=== PATIENT | female | born 1950 | race Caucasian/White ===

== ENCOUNTER 2024-04-20 15:00 | Inpatient (IN) | payer OTHER ==
[~2024-04-20] VITALS: Ht 170.2 cm; Wt 63.3 kg
[~2024-04-20 15:00] MED LIST: ASPI81CH43; ATOR-507; LISI10TA34; METO200T6
--- NOTE | 2024-04-20 15:09 | ECG ---
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
--- NOTE | 2024-04-20 15:15 | ED.PDOC ---
HPI Comments 74-year-old female with a history of hypertension brought in by EMS from home complaining of shortness of breath, generalized weakness and chest pain. Patient reports cough, congestion and shortness a breath for the past week, then noticed chest pain today. Pain is retrosternal radiating to the left side, sharp, worse with inspiration and cough. She denies any fever, nausea, vomiting, diaphoresis or edema. Chief Complaint: Chest Pain Time Seen by MD: 15:14 Primary Care Provider: DR VÁZQUEZ @ [facility] Reviewed Notes: Medications, Allergies Allergies: Coded Allergies: Penicillins (Verified Allergy, Unknown, 04/20/24) Home Meds Reported Medications Lisinopril (Lisinopril) 10 Mg Tab 07/16/11 Metoprolol Succinate (Toprol Xl) 200 Mg Tab 07/16/11 Aspirin (Asa) 81 Mg Ch 07/16/11 Atorvastatin Calcium (Lipitor) 40 Mg Tab 07/16/11 Information Source: Patient, Emergency Med Personnel Mode of Arrival: EMS Severity: Moderate Timing: Days Duration: Since onset Past Medical History PAST MEDICAL HISTORY: Gallstones, HTN, Kidney Stones Past Medical History (Other): Lung cancer in remission, COPD, chronic respiratory failure Surgical History: , Hysterectomy Family History Family History: No family hx of Cancer Social History Smoker: Quit Less Than 1 Year, Cigarettes Alcohol: Denies ETOH Use Drugs: Denies Drug Use Lives In: Home Constitutional: denies: chills, diaphoresis, fatigue, fever, malaise, sweats, weakness, others EENTM: reports: nose congestion; denies: blurred vision, double vision, ear bleeding, ear discharge, ear drainage, ear pain, ear ringing, eye pain, eye redness, hearing loss, mouth pain, mouth swelling, nasal discharge, nose bleeding, nose pain, photophobia, tearing, throat pain, throat swelling, voice changes, others Respiratory: reports: cough; denies: hemoptysis, orthopnea, SOB at rest, shortness of breath, SOB with excertion, stridor, wheezing, others Cardiovascular: reports: chest pain; denies: dizzy spells, diaphoresis, Dyspnea on exertion, edema, irregular heart beat, left arm pain, lightheadedness, palpitations, PND, syncope, others Gastrointestinal: denies: abdomen distended, abdominal pain, blood streaked bowels, constipated, diarrhea, dysphagia, difficulty swallowing, hematemesis, melena, nausea, poor appetite, poor fluid intake, rectal bleeding, rectal pain, vomiting, others Genitourinary: denies: abnormal vagina bleeding, burning, dyspareunia, dysuria, flank pain, frequency, hematuria, incontinence, pain, , vagina discharge, urgency, others Neurological: denies: dizziness, fainting, headache, left sided numbness, left sided weakness, numbness, paresthesia, pre-existing deficit, right sided numbness, right sided weakness, seizure, speech problems, tingling, tremors, weakness, others Musculoskeletal: denies: back pain, gout, joint pain, joint swelling, muscle pain, muscle stiffness, neck pain, others Integumetry: denies: bruises, change in color, change in hair/nails, dryness, laceration, lesions, lumps, rash, wounds, others Allergic/Immunocompromised: denies: Difficulty Healing, Frequent Infections, Hives, Itching, others Hematologic/Lymphatic: denies: anemia, blood clots, easy bleeding, easy bruising, swollen glands, others Endocrine: denies: excessive hunger, excessive sweating, excessive thirst, excessive urination, flushing, intolerance to cold, intolerance to heat, unexplained weight gain, unexplained weight loss, others Psychiatric: denies: anxiety, bipolar disorder, depression, hopeless, panic disorder, schizophrenia, sleepless, suicidal, others All Other Systems: Reviewed and Negative Physical Exam General Appearance: Mild Distress HEENT: Other (Unremarkable) Neck: Full Range of Motion, Normal Inspection Respiratory: Crackles, Decreased Breath Sounds, No Accessory Muscle Use, Respiratory Distress (Mild), Other (Tachypneic) Cardiovascular: No Edema, No JVD, Regular Rate/Rhythm Breast Exam: Deferred Gastrointestinal: Non Tender, Soft Genitalia: Deferred Pelvic: Deferred Rectal: Deferred Extremities: Normal inspection, Normal range of motion, Non-tender, No pedal edema Neurologic: Alert (Oriented x4), Normal Affect, Normal Mood, Other (Moves all extremities. No gross focal deficit.) Cerebellar Function: NOT DONE Reflexes: NOT DONE Skin: Dry, Normal Color, Warm Lymphatic: NOT DONE EKG EKG : Comments Sinus rhythm, rate 94, normal intervals, normal axis, normal QRS, upsloping ST elevation in inferior leads, nonspecific T changes. Was a procedure done? Was a procedure done?: No CP Differential Dx Differential Diagnosis: Angina, Electrolyte Disorder, Heart Failure, [place], Pulmonary Embolus, Renal Failure Differential Diagnosis: CHF Differential Diagnosis: Chest Wall Pain, Esophageal reflux/spasm, Gastritis, Pericarditis, Pneumonia, Pneumothorax X-Ray, Labs, Meds, VS Vital Signs Date Time Temp Pulse Resp B/P (MAP) Pulse Ox O2 Delivery O2 Flow Rate FiO2 04/20/24 19:30 97.9 71 18 112/77 (89) 93 97.9 04/20/24 18:51 97.9 111 16 137/88 (104) 94 97.9 04/20/24 17:46 20 95 Room Air* 0 21 04/20/24 16:03 94 04/20/24 15:03 89 04/20/24 15:00 98.9 88 20 136/77 (96) 95 Lab Test 04/20/24 21:06 04/20/24 18:24 04/20/24 16:30 04/20/24 15:09 Range/Units Influenza Type A Antigen Negative Negative Influenza Type B Antigen Negative Negative SARS-CoV-2 Antigen (Rapid) Negative NEGATIVE Troponin I High Sensitivity 5 4 5 </=34 ng/L Thyroid Stimulating Hormone (TSH) 1.85 0.55-4.78 uIU/mL Lactic Acid Level 1.5 0.4-2.0 mmol/L White Blood Count 19.6 H 4.4-10.8 10^3/uL Red Blood Count 4.45 4.0-5.20 10^6/uL Hemoglobin 12.1 L 12.2-16.2 g/dL Hematocrit 38.1 36.0-46.0 % Mean Corpuscular Volume 85.5 80.0-100.0 fL Mean Corpuscular Hemoglobin 27.3 L 28.0-32.0 pg Mean Corpuscular Hemoglobin Concent 31.9 L 32.0-36.0 g/dL Red Cell Distribution Width 15.8 H 11.8-14.3 % Platelet Count 479 H 140-450 10^3/uL Mean Platelet Volume 7.2 6.9-10.8 fL Neutrophils (%) (Auto) 92.3 H 37.0-80.0 % Lymphocytes (%) (Auto) 3.7 L 10.0-50.0 % Monocytes (%) (Auto) 3.1 0.0-12.0 % Eosinophils (%) (Auto) 0.1 0.0-7.0 % Basophils (%) (Auto) 0.8 0.0-2.0 % Neutrophils # (Auto) 18.1 H 1.6-8.6 10 ^3/uL Lymphocytes # (Auto) 0.7 0.4-5.4 10 ^3/uL Monocytes # (Auto) 0.6 0-1.3 10 ^3/uL Eosinophils # (Auto) 0 0-0.8 10 ^3/uL Basophils # (Auto) 0.2 0-0.2 10 ^3/uL Nucleated Red Blood Cells 0.1 % Sodium Level 135 L 136-145 mmol/L Potassium Level 5.5 H 3.5-5.1 mmol/L Chloride Level 99 98-107 mmol/L Carbon Dioxide Level 28 20-31 mmol/L Anion Gap 8 5-15 Blood Urea Nitrogen 18 9-23 mg/dL Creatinine 1.03 H 0.550-1.02 mg/dL Glomerular Filtration Rate Calc 57 >90 mL/min BUN/Creatinine Ratio 17.5 10.0-20.0 Serum Glucose 113 H 74-106 mg/dL Calcium Level 9.8 8.7-10.4 mg/dL Magnesium Level 1.9 1.6-2.6 mg/dL Iron Level 23 L 50-170 ug/dL Total Iron Binding Capacity 229 L 250-425 ug/dL Percent Iron Saturation 10.0 L 15-50 % Total Bilirubin 0.7 0.2-1.0 mg/dL Aspartate Amino Transferase (AST) 28 13-40 U/L Alanine Aminotransferase (ALT) 27 7-40 U/L Alkaline Phosphatase 78 46-116 U/L B-Type Natriuretic Peptide 58.93 0-100 pg/mL Total Protein 6.1 5.7-8.2 g/dL Albumin 3.6 3.2-4.8 g/dL Vitamin B12 Level Pending Folic Acid Pending Current Medications Medications (Trade) Dose Ordered Sig/Reggie Route Start Time Stop Time Status Last Admin Zirconium Oxide (Lokelma) 10 gm ONCE ONCE PO 04/20/24 17:00 04/20/24 17:10 DC 04/20/24 20:13 Albuterol (Ventolin Medneb) 5 mg ONCE ONCE NEB 04/20/24 17:00 04/20/24 17:10 DC 04/20/24 17:43 Sodium Bicarbonate 50 ml ONCE ONCE IV 04/20/24 17:00 04/20/24 17:10 DC 04/20/24 20:19 Sodium Chloride 500 ml @ 500 mls/hr Q1H ONCE IV 04/20/24 17:00 04/20/24 17:59 DC 04/20/24 20:12 Methylprednisolone Sodium Succinate (Solu Medrol) 125 mg ONCE ONCE IV 04/20/24 19:00 04/20/24 19:01 DC 04/20/24 20:15 PROCEDURE(s): CXRP - CHEST PORTABLE REASON: CP ORDER NUMBER(s): [id number], ACCESSION NUMBER(s): [id number] CHEST RADIOGRAPH Indication: CP Technique: Single frontal view of the chest was obtained Comparison: None FINDINGS: Lines and Tubes: None Lungs/pleura: There is yonfs-kc-oqjejzrq size left pleural effusion with likely atelectasis in the left lower lobe. The right lung and pleural space are clear. Cardiomediastinal contours: Unremarkable Pulmonary vasculature: Within normal limits. Bones: No acute osseous abnormality. IMPRESSION: 1. Jastr-mt-fqiylprn size left pleural effusion with likely atelectasis in the left lower lobe. HS:Y ATED BY: HITESH SOTO MD X-Ray, Labs, Meds, VS Comment 74-year-old female with a history of hypertension, COPD and chronic respiratory failure complaining of shortness a breath, generalized weakness and chest pain Vitals unremarkable Exam remarkable for diminished breath sounds and rales at both bases, mild respiratory distress Rhythm strip independently interpreted by me: Sinus rhythm, rate 94, no ectopy. Chest x-ray IMPRESSION: 1. Uvkth-kx-czqxoorx size left pleural effusion with likely atelectasis in the left lower lobe. 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 He did not feel the current EKG and symptoms represented a STEMI and recommended medical management. Patient treated with the following in the ED: 500 cc 0.9 normal saline IV bolus, Levaquin 750 mg IV, regular insulin 10 units IV, D50 50 mL IV, sodium bicarb 50 mEq IV, albuterol 5 mg nebulized, calcium gluconate 1 g IV, Lokelma 10 mg p.o., Solu-Medrol 125 mg IV On re-evaluation, patient is resting comfortably with stable vitals. Oxygen saturation is normal on 2 L nasal cannula. Case discussed with Andres COLE RP. Agreed patient is not currently stable for transfer. We are authorized to admit the patient here. Authorization [id number] Time of 1ST Reevaluation: 15:40 Reevaluation 1ST: Improved Patient Education/Counseling: Diagnosis, Treatment, Prognosis Family Education/Counseling: Diagnosis, Treatment, Need For Follow Up Departure 1 Departure Time of Disposition: 17:12 Impression: Primary Impression: Recurrent left pleural effusion Additional Impressions: Hyperkalemia Hyponatremia Ysivi-wk-fzdzxbi respiratory failure Qualified Codes: J96.20 - Acute and chronic respiratory failure, unspecified whether with hypoxia or hypercapnia COPD exacerbation Disposition: ADMITTED INPATIENT Admit to: Tele Condition: Guarded Critical Care Note Critical Care Time?: Yes (45 min-critical care time only) Critical care comment: Critical care time including multiple bedside re-evaluations, review of lab and imaging studies, and discussion of the case with the accepting provider. Patient is high risk for respiratory and/or hemodynamic decompensation. Stability Stability form required: No Heart Score Heart Score: Heart Score Response (Comments) Value History Slightly Suspicious 0 EKG Repolarization Disturb 1 Age >65 2 Risk Factors 1 or 2 risk factors 1 Troponin Normal limit 0 Total 4 I personally scribed for JADIEL ISAACS MD ([email or web address]) on 04/20/24 at 15:15. Electronically submitted by Marvin Zuluaga [email or web address]). JADIEL ISAACS MD Apr 20, 2024 15:15
[2024-04-20 15:29] LABS: Eosinophils # (auto) 0 10 ^3/uL (0-0.8); Hemoglobin 12.1 g/dL (12.2-16.2); Lymphocytes # (auto) 0.7 10 ^3/uL (0.4-5.4); Red Blood Cells 4.45 10^6/uL (4.0-5.20)
[2024-04-20 15:30] LABS: Basophils # (auto) 0.2 10 ^3/uL (0-0.2); Basophils % (auto) 0.8 % (0.0-2.0); Eosinophils % (auto) 0.1 % (0.0-7.0); Hematocrit 38.1 % (36.0-46.0); Lymphocytes % (auto) 3.7 % (10.0-50.0); Mean Corpuscular Hemoglobin 27.3 pg (28.0-32.0); Mean Corpuscular Hgb Conc. 31.9 g/dL (32.0-36.0); Mean Corpuscular Volume 85.5 fL (80.0-100.0); Monocytes # (auto) 0.6 10 ^3/uL (0-1.3); Monocytes % (auto) 3.1 % (0.0-12.0); Neutrophils # (auto) 18.1 10 ^3/uL (1.6-8.6); Neutrophils % (auto) 92.3 % (37.0-80.0); Nucleated Red Blood Cells % 0.1 %; Platelet Count (auto) 479 10^3/uL (140-450); Red Cell Distribution Width 15.8 % (11.8-14.3); White Blood Cell 19.6 10^3/uL (4.4-10.8)
[2024-04-20 15:44] LABS: Alanine Aminotransferase 27 U/L (7-40); Albumin 3.6 g/dL (3.2-4.8); Alkaline Phosphatase 78 U/L (46-116); Anion Gap 8 (5-15); Aspartate Aminotransferase 28 U/L (13-40); BUN/Creatinine Ratio 17.5 (10.0-20.0); Blood Urea Nitrogen 18 mg/dL (9-23); Calcium 9.8 mg/dL (8.7-10.4); Carbon Dioxide 28 mmol/L (20-31); Chloride 99 mmol/L (98-107); Magnesium 1.9 mg/dL (1.6-2.6)
[2024-04-20 15:45] LABS: Bilirubin, Total 0.7 mg/dL (0.2-1.0); Total Protein 6.1 g/dL (5.7-8.2)
[2024-04-20 15:48] LABS: Glucose 113 mg/dL (74-106); Potassium 5.5 mmol/L (3.5-5.1); Sodium 135 mmol/L (136-145)
--- NOTE | 2024-04-20 15:58 | DVH ---
CHEST RADIOGRAPH Indication: CP Technique: Single frontal view of the chest was obtained Comparison: None FINDINGS: Lines and Tubes: None Lungs/pleura: There is godcd-bz-skixtgzb size left pleural effusion with likely atelectasis in the le ft lower lobe. The right lung and pleural space are clear. Cardiomediastinal contours: Unremarkable Pulmonary vasculature: Within normal limits. Bones: No acute osseous abnormality. IMPRESSION: 1. Qrsqv-ta-zccaqxwh size left pleural effusion with likely atelectasis in the left lower lobe. HS:Y
--- NOTE | 2024-04-20 16:07 | ECG ---
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
[2024-04-20] MEDS: InsuLIN REG 1unit/0.01ml Soln (100units/ml) IV ONE (17:00)
[2024-04-20] MEDS: DEXTROSE (50%) 50ML SYRG IV ONE (17:00)
[2024-04-20] MEDS: CALCIUM GLUC 1,000mg/50ml-NS 50 ML IV ONE (17:00)
[2024-04-20] MEDS: ALBUTEROL SULF 2.5 MG/0.5ML(0.5%) NEB SOLN NEB ONE (17:43)
[2024-04-20 20:05] VITALS: PULSE 71; RESP 18; O2SAT 94
[2024-04-20] MEDS: SODIUM CHLORIDE 0.9% 500 ML IV ONE (20:12)
[2024-04-20] MEDS: SODIUM ZIRCONIUM CYCL 10 GM PAK PO ONE (20:13)
[2024-04-20] MEDS: methylPREDNISolone SOD SUCC 125 MG/2 ML VL IV ONE (20:15)
[2024-04-20] MEDS: SODIUM BICARB 8.4% 50Meq/50ml SYR Vial IV ONE (20:19)
[2024-04-20] MEDS: levoFLOXacin 750MG 150 ML IV ONE (21:00)
--- NOTE | 2024-04-20 21:44 | DVHHPRES ---
History of Present Illness Resident Creating Document: LAMBERT DOTSON RESIDENT History of Present Illness Patient is a 74-year-old female with past medical history of COPD, lung cancer diagnosed 5 years ago s/p chemotherapy currently in remission, hypertension, peptic ulcer disease, who came in due to shortness of breath and generalized weakness. According to the patient, on she hosted her family, among which some of the family members were ill. Patient notes thereafter she developed a flu-like illness which progressively worsened over the last 1 week. Patient notes that she was unable to walk 4 ft to the bathroom due to generalized weakness and severe shortness of breaths which progressively worsened to having difficulty breathing and subsequently patient was brought in by the EMS. Patient also notes dry heaving episodes. Per patient, she lost 25 lb in the last 4 weeks. At home she uses walker for ambulation. Home medications: Protocol, ondansetron, lisinopril, Protonix, prednisone, loperamide, albuterol Social & Personal history: Quit smoking 5 years ago, prior to that was smoking 1 pack per day for 50 years. Allergies: Penicillin Past Medical History Hypertension, COPD, lung cancer, peptic ulcer disease Past Surgical History Hysterectomy, section x2, bladder surgery, kidney surgery x3 for nephrolithiasis Smoke: Quit ALCOHOL: none Drugs: Other (Biju Castro oil, contains THC) Lives: with Family Review of Systems Constitutional: Yes: Malaise; No: Fever, Chills, Sweats, Weakness, Other Eyes: No: Pain, Vision change, Conjunctivae inflammation, Eyelid inflammation, Other, Redness ENT: Nose discharge, Nose congestion, Throat pain; No: Ear pain, Ear discharge, Nose pain, Mouth pain, Mouth swelling, Throat swelling, Other Respiratory: Cough, Shortness of breath, SOB with excertion; No: Dry, Wheezing, Hemoptysis, Pleuritic Pain, Sputum, Wheezing, Other Cardiovascular: No: Chest Pain, Palpitations, Orthopnea, Paroxysmal Noc. Dyspnea, Edema, Lt Headedness, Other Gastrointestinal: Nausea, Vomiting, Diarrhea; No: Abdominal Pain, Constipation, Melena, Hematochezia, Other Genitourinary: No Dysuria, No Frequency, No Incontinence, No Hematuria, No Retention, No Other Musculoskeletal: No: other, neck pain, shoulder pain, arm pain, back pain, hand pain, leg pain, foot pain Skin: No: Rash, Lesions, Jaundice, Bruising, Other Neurological: No: Weakness, Numbness, Incoordination, Change in speech, Confusion, Seizures, Other Allergies: Coded Allergies: Penicillins (Verified Allergy, Unknown, 04/20/24) Medications Current Medications Medications Dose Ordered Sig/Reggie Route Start Time Stop Time Status Last Admin Dose Admin Albuterol 2.5 mg Q4HPRN PRN NEB 04/20/24 21:45 UNV Exam Vital Signs Vital Signs Date Time Temp Pulse Resp B/P (MAP) Pulse Ox O2 Delivery O2 Flow Rate FiO2 04/20/24 19:30 97.9 71 18 112/77 (89) 93 97.9 04/20/24 17:46 Room Air* 0 21 General Appearance: Alert, Oriented X3, Cooperative, mild distress HEENT: Atraumatic, PERRLA, EOMI, Mucous membr. moist/pink Respiratory: Other (Wheezes heard bilaterally) Cardiovascular: Regular rate, Normal S1, Normal S2, No murmurs Abdominal: Normal bowel sounds Extremities: No cyanosis, No edema, Normal pulses Skin: No rashes, No breakdown, No significant lesion (Bilaterally cool lower e xtremities) Neuro: Other (Please muscle strength in bilateral lower extremities, resting tremor noted in right upper extremity) Labs/Xrays Labs Test 04/20/24 21:06 04/20/24 18:24 04/20/24 16:30 04/20/24 15:09 Range/Units Troponin I High Sensitivity 5 </=34 ng/L Lactic Acid Level 1.5 0.4-2.0 mmol/L White Blood Count 19.6 H 4.4-10.8 10^3/uL Red Blood Count 4.45 4.0-5.20 10^6/uL Hemoglobin 12.1 L 12.2-16.2 g/dL Hematocrit 38.1 36.0-46.0 % Mean Corpuscular Volume 85.5 80.0-100.0 fL Mean Corpuscular Hemoglobin 27.3 L 28.0-32.0 pg Mean Corpuscular Hemoglobin Concent 31.9 L 32.0-36.0 g/dL Red Cell Distribution Width 15.8 H 11.8-14.3 % Platelet Count 479 H 140-450 10^3/uL Mean Platelet Volume 7.2 6.9-10.8 fL Neutrophils (%) (Auto) 92.3 H 37.0-80.0 % Lymphocytes (%) (Auto) 3.7 L 10.0-50.0 % Monocytes (%) (Auto) 3.1 0.0-12.0 % Eosinophils (%) (Auto) 0.1 0.0-7.0 % Basophils (%) (Auto) 0.8 0.0-2.0 % Neutrophils # (Auto) 18.1 H 1.6-8.6 10 ^3/uL Lymphocytes # (Auto) 0.7 0.4-5.4 10 ^3/uL Monocytes # (Auto) 0.6 0-1.3 10 ^3/uL Eosinophils # (Auto) 0 0-0.8 10 ^3/uL Basophils # (Auto) 0.2 0-0.2 10 ^3/uL Nucleated Red Blood Cells 0.1 % Sodium Level 135 L 136-145 mmol/L Potassium Level 5.5 H 3.5-5.1 mmol/L Chloride Level 99 98-107 mmol/L Carbon Dioxide Level 28 20-31 mmol/L Anion Gap 8 5-15 Blood Urea Nitrogen 18 9-23 mg/dL Creatinine 1.03 H 0.550-1.02 mg/dL Glomerular Filtration Rate Calc 57 >90 mL/min BUN/Creatinine Ratio 17.5 10.0-20.0 Serum Glucose 113 H 74-106 mg/dL Calcium Level 9.8 8.7-10.4 mg/dL Magnesium Level 1.9 1.6-2.6 mg/dL Total Bilirubin 0.7 0.2-1.0 mg/dL Aspartate Amino Transferase (AST) 28 13-40 U/L Alanine Aminotransferase (ALT) 27 7-40 U/L Alkaline Phosphatase 78 46-116 U/L B-Type Natriuretic Peptide 58.93 0-100 pg/mL Total Protein 6.1 5.7-8.2 g/dL Albumin 3.6 3.2-4.8 g/dL Assessment/Plan Assessment/Plan Sepsis likely due to pneumonia COPD exacerbation Left-sided pleural effusion - CXR: Ladkk-gm-oriqgxww size left pleural effusion with likely atelectasis in the left lower lobe - chest ultrasound: Small left pleural effusion. No right pleural effusion - IV azithromycin, IV ceftriaxone - ipratropium, albuterol med nebs - IV methylprednisolone 40 mg b.i.d. - IV NS at 75 cc/hour - ordered influenza, COVID. MRSA nares, blood culture, sputum culture. LIBAN, likely hemodynamically mediated/VMN - monitor Peptic Ulcer disease - IV Protonix 40 mg daily Anemia, likely of chronic disease vs iron deficiency, MCV 85.5 - started on IV iron Hyperkalemia - sodium bicarb IV once - Lokelma 10 g p.o. once - monitor History of lung cancer, s/p chemotherapy: Currently in remission - ordered CT chest without contrast DVT prophylaxis: Levonox 30mg Goals of care: Full code, discussed for >16 minutes on 04/20/2024 Plan discussed with patient Plan discussed with Dr. Wilkerson Plan discussed with: Patient, Other (RN) My Orders Orders - LAMBERT DOTSON RESIDENT Procedure Category Date Status Time Admit ADMIT 04/20/24 Transmitted 21:37 Notify Md Of Changes SHAHNAZ 04/20/24 In Process From Base 21:37 Rapid Influenza A&B LAB 04/20/24 Logged 21:37 Iron Panel LAB 04/20/24 Logged 21:37 Thyroid Stimulating LAB 04/20/24 Logged Hormone 21:37 Folate (Folic Acid) LAB 04/20/24 Logged 21:37 Vitamin B12 LAB 04/20/24 Logged 21:37 Urinalysis LAB 04/20/24 Logged 21:37 Mrsa Screen SHANNAN 04/20/24 Logged 21:37 Blood Culture SHANNAN 04/20/24 Logged 21:37 Respiratory Culture SHANNAN 04/20/24 Logged W/ Gs 21:37 Incentive Spirometry ORDERS 04/20/24 Transmitted 21:40 Albuterol Medneb PHA 04/20/24 Logged (Ventolin Medneb) 21:45 Ipratropium Medneb PHA 04/20/24 Logged (Atrovent Medneb) 22:00 Azithromycin 500mg/ PHA 04/21/24 Logged 250ml (Zithromax 50 10:00 Azithromycin 500mg/ PHA 04/20/24 Logged 250ml (Zithromax 50 21:45 Ceftriaxone 1gm/50ml PHA 04/21/24 Logged D5w (Rocephin) 09:00 Ceftriaxone 1gm/50ml PHA 04/20/24 Logged D5w (Rocephin) 21:45 Pantoprazole PHA 04/21/24 Logged (Protonix) 10:00 Methylprednisolone PHA 04/20/24 Logged Sod Succ (Solu Medrol 22:00 Enoxaparin Sodium PHA 04/21/24 Logged (Lovenox) 10:00 Complete Blood Count LAB 04/21/24 Verified 02:00 Basic Metabolic Panel LAB 04/21/24 Verified 02:00 Date of Service: Apr 20, 2024 Billing Provider: JEAN WILKERSON MD Common Visit Codes: 84232-[id number] INP/OBS CARE (HIGH) Secondary Visit Codes: 84959-[id number] CARE PLAN 30 MINUTES LAMBERT DOTSON RESIDENT Apr 20, 2024 21:44 JEAN WILKERSON MD Apr 21, 2024 09:40
[2024-04-20] MEDS ORDERED: methylPREDNISolone SOD SUCC 40 MG/ML VL IV SCH (22:00)
[2024-04-20 22:07] LABS: COVID19 ANTIGEN SOFIA FIA NEGATIVE (NEGATIVE)
[2024-04-20 22:08] LABS: Rapid Influenza A Negative (Negative); Rapid Influenza B Negative (Negative)
[2024-04-20] MEDS: cefTRIAXone 1GM/50ML D5W 50 ML IV ONE (22:42)
[2024-04-20] MEDS: SODIUM CHLORIDE 0.9% 1,000 ML IV SCH (22:42)
[2024-04-20] MEDS: IPRATROPIUM BROM 0.5 MG/2.5ML INH SOL NEB SCH (23:14)
[2024-04-20 23:19] VITALS: BP 112/77; PULSE 71; RESP 18; TEMP 97.9; O2SAT 93
[2024-04-20 23:30] LABS: Folate (Folic Acid) > 48.00 ng/mL (>5.38)
[2024-04-21] VITALS (17 sets, daily range): BP systolic 122–149; BP diastolic 61–94; PULSE 74–110; RESP 16–19; TEMP 97.4–98.7; O2SAT 92–100
--- NOTE | 2024-04-21 00:48 | DVH ---
Exam: US CHEST ULTRASOUND Clinical History: pleural effusion Comparison: None Technique: Targeted sonographic evaluation of the soft tissues of the bilateral chest was obtained utilizing gr ayscale and color Doppler imaging. Findings/Impression: Small left pleural effusion. No right pleural effusion
[2024-04-21] MEDS: AZITHROMYCIN 500MG/ 250ML 250 ML IV ONE (02:11)
[2024-04-21] MEDS: ALBUTEROL SULF 2.5 MG/0.5ML(0.5%) NEB SOLN NEB PRN (02:21)
[2024-04-21 02:29] LABS: Hematocrit 35.8 % (36.0-46.0); Hemoglobin 11.6 g/dL (12.2-16.2); Mean Corpuscular Hemoglobin 27.3 pg (28.0-32.0); Mean Corpuscular Hgb Conc. 32.3 g/dL (32.0-36.0); Mean Corpuscular Volume 84.7 fL (80.0-100.0); Platelet Count (auto) 463 10^3/uL (140-450); Red Blood Cells 4.23 10^6/uL (4.0-5.20); Red Cell Distribution Width 16.7 % (11.8-14.3); White Blood Cell 23.4 10^3/uL (4.4-10.8)
[2024-04-21 02:31] LABS: Basophils % (manual) 0 (0.0-2.0); Blast Cells 0; Eosinophils % (manual) 0 (0-7); Metamyelocytes % 0; Myelocytes % 0; Promyelocytes % 0; Reactive Lymphocytes 0
[2024-04-21 03:01] LABS: Band Neutrophils % (manual) 1; Lymphocytes % (manual) 1 (10.0-50.0); Monocytes % (manual) 1 (0-12); Platelet Estimate Increased
[2024-04-21 03:02] LABS: RBC Morphology Normal
[2024-04-21 03:38] LABS: Anion Gap 12 (5-15)
[2024-04-21 03:43] LABS: BUN/Creatinine Ratio 18.2 (10.0-20.0)
[2024-04-21 04:01] LABS: Blood Urea Nitrogen 20 mg/dL (9-23); Calcium 9.5 mg/dL (8.7-10.4); Carbon Dioxide 25 mmol/L (20-31); Chloride 101 mmol/L (98-107); Glucose 232 mg/dL (74-106); Potassium 4.4 mmol/L (3.5-5.1); Sodium 138 mmol/L (136-145)
[2024-04-21] MEDS: ACETAMINOPHEN 325 MG TAB PO ONE (04:23)
[2024-04-21] MEDS ORDERED: POTA-220 PO (04:35)
[2024-04-21] MEDS ORDERED: PANT40TA2 PO (04:35)
[2024-04-21] MEDS ORDERED: ACET-1881 PO (04:35)
[2024-04-21] MEDS ORDERED: FOLI-119 PO (04:35)
[2024-04-21] MEDS ORDERED: ZOFR4T PO (04:35)
[2024-04-21] MEDS ORDERED: DEXTROSE (50%) 50ML SYRG IV PRN (05:15)
[2024-04-21 06:40] LABS: Urine Bacteria None Seen /hpf (None Seen)
[2024-04-21 06:53] LABS: Urine Blood Negative /uL (Negative); Urine Clarity Clear (Clear); Urine Color Yellow (Yellow); Urine Hyaline Cast FEW /lpf (0 - 2); Urine Mucus FEW (None Seen); Urine Protein, UAD 1+ (Negative); Urine Specific Gravity 1.016 (1.001-1.035); Urine Squamous Epithelial Cell FEW /hpf (<5); Urine Urobilinogen Normal (Negative); Urine WBC 6 /hpf (0 - 5)
[2024-04-21] MEDS ORDERED: ACCU-CHEK COMFORT CURVE STRIP VI SCH (08:00)
[2024-04-21] MEDS ORDERED: InsuLIN REG 1unit/0.01ml Soln (100units/ml) SC SCH (08:00)
--- NOTE | 2024-04-21 08:41 | DVH ---
CT Chest without intravenous contrast INDICATION: s/p lung cancer TECHNIQUE: Multidetector spiral CT of the chest was performed from the lung apices to the upper abdom en. Axial, coronal and sagittal multiplanar reformats were performed. Radiation Dose : 1. Chest: CTDI volume is 5.29 mGy. Dose-length product is 197.9 mGy*cm The dose indicators for CT are the volume Computed Tomography (CT) Dose Index (CTDIvol) and the Dose Length Product (DLP), and are measured in units of mGy and mGy-cm, respectively. These indicators are not patient dose, but values generated from the CT scanner acquisition factors. The report includes radiation exposure data for exposures received during this examination. Comparison: None Findings: Lower neck: Normal thyroid. Lungs: Left apical scarring. Linear scarring in the medial left upper lobe likely representing posttr eatment related change. Multiple peripheral tree-in-bud opacities in the left lower lobe are likely infectious or inflammator y. Heart/Vascular Structures: Normal heart size. Trace pericardial effusion. Lymph Nodes: No adenopathy Pleura: Small left pleural effusion. Musculoskeletal: No acute osseous abnormality. Soft tissues: Normal. Upper abdomen: Limited portions of the upper abdomen are unremarkable. IMPRESSION: Posttreatment related changes in the left upper lobe. Small left pleural effusion. Subtle peripheral tree-in-bud opacities in the left lower lobe are nonspecific but likely infectious or inflammatory. Radiation optimization: All CT scans at this facility use at least one of these dose optimization tree hniques: automated exposure control mA and/or kV adjustment per patient size (includes targeted exam s where dose is matched to clinical indication) or iterative reconstruction.
[2024-04-21] MEDS: PANTOPRAZOLE 40 MG/10 ML VIAL INJ IV SCH (09:30)
[2024-04-21] MEDS: cefTRIAXone 1GM/50ML D5W 50 ML IV SCH (09:30)
[2024-04-21] MEDS: ENOXAPARIN SOD 30 MG/0.3 ML SYRINGE SC SCH (09:31)
[2024-04-21] MEDS: methylPREDNISolone SOD SUCC 40 MG/ML VL IV SCH (09:31)
--- NOTE | 2024-04-21 10:12 | DVHPN2 ---
Progress Note Date Seen: Apr 21, 2024 Medical Necessity Reason Pt with a Central, PICC or Fol: No Subjective Patient reports: No new complaints Review of Systems: HEENT:Normal, CVS:Normal, RESPIRATORY:Normal, GI:Normal, :Normal, MSK:Normal, NEURO:Normal Objective vital signs Vital Sign Date Time Temp Pulse Resp B/P (MAP) Pulse Ox O2 Delivery O2 Flow Rate FiO2 04/21/24 09:52 105 18 99 04/21/24 09:47 Room Air 0.0 04/21/24 09:47 21 04/21/24 09:00 97.4 149/89 (109) 97.4 Total Intake and Output 04/20/24 04/20/24 04/21/24 15:00 23:00 07:00 Intake Total 500 ml 240 ml Balance 500 ml 240 ml medications Current Medications Medications Dose Ordered Sig/Reggie Route Start Time Stop Time Status Last Admin Dose Admin Albuterol 2.5 mg Q4HPRN PRN NEB 04/20/24 21:45 04/21/24 09:47 2.5 MG Ipratropium [place] 0.5 mg Q4HR NEB 04/20/24 22:00 04/21/24 09:47 0.5 MG Azithromycin 250 ml @ 125 mls/hr DAILY IV 04/21/24 10:00 Ceftriaxone Sodium 50 ml @ 100 mls/hr DAILY@09 IV 04/21/24 09:00 04/21/24 09:30 100 MLS/HR Pantoprazole Sodium 40 mg DAILY IV 04/21/24 10:00 04/21/24 09:30 40 MG Enoxaparin Sodium 30 mg DAILY SC 04/21/24 10:00 04/21/24 09:31 30 MG Methylprednisolone Sodium Succinate 40 mg BID IV 04/21/24 10:00 04/21/24 09:31 40 MG Sodium Chloride 1,000 ml @ 75 mls/hr [id number] IV 04/20/24 22:15 04/20/24 22:42 75 MLS/HR Iron Sucrose 110 ml @ 110 mls/hr DAILY@1200 IV 04/21/24 12:00 04/25/24 12:59 Examination: GENERAL:Normal, HEENT:Normal, NECK:Normal, LUNGS:Normal, LUNGS:Abnormal (on oxygen, decreased left base), CVS:Normal, ABDOMEN:Normal, MSK:Normal, SKIN:Normal, NEURO:Normal, :Normal laboratory and microbiology Laboratory Tests 04/21/24 02:04 Test 04/21/24 02:04 Range/Units Serum Glucose 232 H 74-106 mg/dL Microbiology Date/Time Source Procedure Growth Status 04/20/24 16:30 Blood Blood Culture - Preliminary Resulted Problem List/Assessment/Plan Problem List/Assessment/Plan #1 acute resp failure: cont oxygen #2 copd with exacerbation: cont meds #3 ?pneumonia /sepsis gram positive/neg: iv antibiotics, sputum culture #4 htn #5 left pleural effusion #6 lung cancer s/p chemo/radiation advance care planning- full code- time spent 21 mins Plan discussed with: Patient My Orders My Orders Orders - CECILIA VORA MD Procedure Category Date Status Time Levalbuterol Hcl PHA 04/21/24 Transmitted (Xopenex Medneb) 12:00 Ipratropium Medneb PHA 04/21/24 Transmitted (Atrovent Medneb) 12:00 2 Gm Sodium Diet DIET 04/21/24 Transmitted Lunch Metoprolol Xl PHA 04/21/24 Transmitted Succinate (Toprol Xl) 10:15 Metoprolol Xl PHA 04/22/24 Transmitted Succinate (Toprol Xl) 10:00 Lisinopril Tablet PHA 04/21/24 Transmitted (Zestril Tablet) 10:15 Lisinopril Tablet PHA 04/22/24 Transmitted (Zestril Tablet) 10:00 Basic Metabolic Panel LAB 04/22/24 Verified 06:00 Complete Blood Count LAB 04/22/24 Verified 06:00 Pt Request For Service PT 04/21/24 Transmitted 10:02 Date of Service: Apr 21, 2024 Billing Provider: CECILIA VORA MD Common Visit Codes: [id number] INP/OBS CARE(HIGH) Secondary Visit Codes: [id number] CARE PLAN 30 MINUTES CECILIA VORA MD Apr 21, 2024 10:12
[2024-04-21] MEDS: AZITHROMYCIN 500MG/ 250ML 250 ML IV SCH (10:40)
[2024-04-21] MEDS: LISINOPRIL 5 MG TAB PO ONE (10:52)
[2024-04-21] MEDS: METOPROLOL SUCCINATE XL 50 MG TAB PO ONE (10:54)
[2024-04-21] MEDS ORDERED: IRON SUCROSE COMPLEX 110 ML IV SCH (12:00)
[2024-04-21] MEDS: traMADol HCL 50 MG TAB PO PRN (12:59)
[2024-04-21] MEDS: IPRATROPIUM BROM 0.5 MG/2.5ML INH SOL NEB SCH (14:06)
[2024-04-21] MEDS: LEVALBUTEROL HCL 1.25 MG/3 ML NEB NEB SCH (14:06)
[2024-04-22] VITALS (18 sets, daily range): BP systolic 111–187; BP diastolic 52–99; PULSE 82–110; RESP 15–18; TEMP 36.7; O2SAT 93–99
[2024-04-22] MEDS: LISINOPRIL 5 MG TAB PO SCH (09:01)
[2024-04-22] MEDS: METOPROLOL SUCCINATE XL 50 MG TAB PO SCH (09:02)
[2024-04-22 10:11] LABS: Hematocrit 33.1 % (36.0-46.0); Hemoglobin 10.5 g/dL (12.2-16.2); Mean Corpuscular Hemoglobin 27.1 pg (28.0-32.0); Mean Corpuscular Hgb Conc. 31.7 g/dL (32.0-36.0); Mean Corpuscular Volume 85.6 fL (80.0-100.0); Platelet Count (auto) 436 10^3/uL (140-450); Red Blood Cells 3.87 10^6/uL (4.0-5.20); White Blood Cell 23.8 10^3/uL (4.4-10.8)
[2024-04-22 10:24] LABS: Chloride 99 mmol/L (98-107); Potassium 4.4 mmol/L (3.5-5.1)
[2024-04-22 10:25] LABS: Anion Gap 7 (5-15); Calcium 9.4 mg/dL (8.7-10.4); Carbon Dioxide 29 mmol/L (20-31)
[2024-04-22 10:26] LABS: Band Neutrophils % (manual) 0; Basophils % (manual) 0 (0.0-2.0); Blast Cells 0; Eosinophils % (manual) 0 (0-7); Metamyelocytes % 0; Myelocytes % 0; Promyelocytes % 0; Reactive Lymphocytes 0
--- NOTE | 2024-04-22 10:31 | DVHINCON2 ---
DATE OF CONSULTATION: 04/22/2024 HISTORY OF PRESENT ILLNESS: The patient is a 74-year-old lady who was admitted with history of increasing shortness of breath and generalized weakness and has history of COPD, previous lung cancer, hypertension and peptic ulcer disease. HOSPITAL COURSE: The patient was placed on intravenous steroids. Blood cultures have been positive for gram-positive cocci. White count was elevated at 19,000. The patient had a CT of the chest that showed small left pleural effusion with post-treatment related changes in the left upper lobe. There was a possible infection in the left lower lobe. The patient was placed on antibiotics. She is currently afebrile. The patient will now be transferred to [place] for further management. FINAL DIAGNOSES: Therefore, * Acute respiratory failure. * Chronic obstructive pulmonary disease exacerbation. * Likely pneumonia with sepsis, gram-positive, gram-negative. * Hypertension. * Left pleural effusion. * History of lung cancer with previous chemo and radiation. Time spent in discharge planning and review of plan with the patient, nursing and paperwork was 38 minutes. MD CHELLE Regalado/EMILIO TID: [id number] RECEIPT: [id number]
[2024-04-22 10:33] LABS: Blood Urea Nitrogen 24 mg/dL (9-23); Glucose 184 mg/dL (74-106); Sodium 135 mmol/L (136-145)
[2024-04-22 10:38] LABS: BUN/Creatinine Ratio 19.8 (10.0-20.0)
[2024-04-22 12:14] LABS: Lymphocytes % (manual) 3 (10.0-50.0); Monocytes % (manual) 2 (0-12); Platelet Estimate Adequate
[2024-04-22] MEDS: hydrALAZINE HCL 20 MG/ML VL IV PRN (17:35)
[2024-04-23] MEDS ORDERED: PANTOPRAZOLE 40 MG TAB PO SCH (06:00)
== END 2024-04-22 21:50 | disposition short-term general hospital (02) | DRG 871 ==
LOC: EDBD 15:00 → ER 15:00 → OVERFLOW 21:37 → CENTRAL 23:50
PROVIDERS: ADMIT Internal Medicine; ATTEND Internal Medicine
DX: A41.59 Other Gram-negative sepsis (principal); J15.69 Pneumonia due to other Gram-negative bacteria; J15.9 Unspecified bacterial pneumonia; J96.00 Acute respiratory failure, unspecified whether with hypoxia or hypercapnia; N17.0 Acute kidney failure with tubular necrosis; J44.1 Chronic obstructive pulmonary disease with (acute) exacerbation; E87.1 Hypo-osmolality and hyponatremia; J90 Pleural effusion, not elsewhere classified; J44.0 Chronic obstructive pulmonary disease with (acute) lower respiratory infection; Z20.822 Contact with and (suspected) exposure to COVID-19; E87.5 Hyperkalemia; I10 Essential (primary) hypertension; Z87.442 Personal history of urinary calculi; Z87.891 Personal history of nicotine dependence; Z87.11 Personal history of peptic ulcer disease; Z85.118 Personal history of other malignant neoplasm of bronchus and lung; Z92.21 Personal history of antineoplastic chemotherapy; Z92.3 Personal history of irradiation; Z90.710 Acquired absence of both cervix and uterus
CPT/HCPCS: 36415; 71045; 71250; 76604; 80048; 80053; 81001; 82607; 82746; 83036; 83540; 83550; 83605; 83735; 83880; 84443; 84484; 85007; 85025; 85027; 87040; 87077; 87186; 87426; 87804; 93005; 94640; 96361; 96374; 96375; 97110; 97116; 97163; 97530; 99291; G0378; J2470